=== PATIENT | male | born 1950 | race Caucasian/White ===

== ENCOUNTER 2018-04-14 17:52 | Emergency (ER) | payer BC ==
[~2018-04-14] VITALS: Ht 182.9 cm; Wt 125.0 kg
[~2018-04-14 17:52] MED LIST: ACTOPLUS MET 851 TAB PO; ASPIRIN 81M81 MG/TA2 PO; GLUCOPHAGE850 MG/TAB PO; LANTUS SOLOS100 U/ML SC; MULTIPLE VITAMI1 CAP PO; PERCOCET 325 MG1 TA2 PO; POTASSIUM; TYLENOL 325MG325 MG PO; ULTRAM 50MG TAB50 MG PO; XARELTO15 MG PO
[2018-04-14 17:59] VITALS: TEMP 98
[2018-04-14 18:41] LABS: BASO % 0.4 % (0.0-2.0); EOS # 0.1 (0.0-0.7); EOS % 0.8 % (0-4.0); GRAN # 3.9 (1.4-6.5); HEMATOCRIT 43.4 % (42.0-52.0); HEMOGLOBIN 15.4 g/dl (13.5-18.0); LYMPH # 2.8 (1.2-3.4); LYMPH % 37.2 % (20.0-51.0); MEAN CELL VOLUME 90 fl (80.0-100.0); MEAN CORPUSCULAR HEMOGLOBIN 32 pg (27.0-31.0); MEAN CORPUSCULAR HGB CONC 36 g/dl (33.0-37.0); MEAN PLATELET VOLUME 9.1 fl (7.4-10.4); MONO # 0.7 (0.1-0.6); MONO % 9.2 % (1.7-9.3); PLATELET COUNT 133 K/mm3 (130-400)
[2018-04-14 18:43] LABS: INR 0.9 (0.8-3.0); PROTHROMBIN TIME 10.4 SECONDS (9.7-12.8)
[2018-04-14 18:46] LABS: PARTIAL THROMBOPLASTIN TIME 41.4 SECONDS (26.0-37.0)
[2018-04-14 18:47] LABS: ALANINE AMINOTRANSFERASE 39 U/L (21-72); ALKALINE PHOSPHATASE 72 U/L (50-136); ANION GAP 13 mmol/L (7-16); AST,SGOT 30 U/L (15-37); BILIRUBIN,TOTAL 0.8 mg/dL (0.0-1.0); BLOOD UREA NITROGEN 17 mg/dL (9-20); CALCIUM 9.7 mg/dL (8.4-10.2); CARBON DIOXIDE 25 mmol/L (22-30); CHLORIDE 98 mmol/L (98-107); CREATININE, serum 0.84 mg/dL (0.66-1.25); GLUCOSE 272 mg/dL (74-106); POTASSIUM 4.2 mmol/L (3.4-5.0); SODIUM 136 mmol/L (137-145); TOTAL PROTEIN 7.9 gm/dL (6.4-8.2)
[2018-04-14 19:01] LABS: TROPONIN-I < 0.012 ng/mL (0.000-0.034)
[2018-04-14] MEDS ORDERED: ELIQUIS 5MG PO (19:31)
[2018-04-14 20:00] VITALS: BP 150/84; PULSE 80
== END 2018-04-14 20:00 | disposition home or self-care (01) ==
LOC: COL.ER 17:52
PROVIDERS: Emergency Medicine
DX: R06.02 Shortness of breath (principal); E11.9 Type 2 diabetes mellitus without complications; Z79.82 Long term (current) use of aspirin; Z79.84 Long term (current) use of oral hypoglycemic drugs; Z86.711 Personal history of pulmonary embolism; Z86.718 Personal history of other venous thrombosis and embolism
CPT/HCPCS: Q9967

== ENCOUNTER → 2019-06-07 | Outpatient (CLI) | payer BC ==
[~2019-06-07] MED LIST changes: +CLEOCIN HC150 MG/CAP PO; +ELIQUIS 5MG PO; +GLUCOPHAGE1000 MG PO; +GLUCOTROL10 MG PO; +JANUVIA 100MG100 MG PO; +LIPITOR20 MG PO; +SILVADENE CREAM1 TU TP; +TRULICITY1.5 MG/0.5 SQ; +TYLENOL PM EXTR1 TA1 PO; +VITAMIN C W/ROSE HIP PO
== END ==
LOC: COL.RAD 09:27
DX: S91.309A Unspecified open wound, unspecified foot, initial encounter (principal); L08.9 Local infection of the skin and subcutaneous tissue, unspecified; G62.9 Polyneuropathy, unspecified; I96 Gangrene, not elsewhere classified
CPT/HCPCS: A9585

== ENCOUNTER 2019-06-09 16:10 | Inpatient (IN) | payer BC, MEDICARE ==
[~2019-06-09] VITALS: Ht 182.9 cm; Wt 114.2 kg
[~2019-06-09 16:10] MED LIST changes: -CLEOCIN HC150 MG/CAP PO; -GLUCOPHAGE1000 MG PO; -GLUCOTROL10 MG PO; -JANUVIA 100MG100 MG PO; -LIPITOR20 MG PO; -SILVADENE CREAM1 TU TP; -TRULICITY1.5 MG/0.5 SQ; -TYLENOL PM EXTR1 TA1 PO; -VITAMIN C W/ROSE HIP PO
[2019-06-09] MEDS ORDERED: TRULICITY1.5 MG/0.5 SQ (17:14)
[2019-06-09] MEDS ORDERED: CLEOCIN HC150 MG/CAP PO (17:15)
[2019-06-09] MEDS ORDERED: GLUCOPHAGE1000 MG PO (17:15)
[2019-06-09] MEDS ORDERED: GLUCOTROL10 MG PO (17:16)
[2019-06-09] MEDS ORDERED: SILVADENE CREAM1 TU TP (17:16)
[2019-06-09] MEDS ORDERED: JANUVIA 100MG100 MG PO (17:17)
[2019-06-09] MEDS ORDERED: LIPITOR20 MG PO (17:17)
[2019-06-09] MEDS ORDERED: VITAMIN C W/ROSE HIP PO (17:18)
[2019-06-09] MEDS ORDERED: TYLENOL PM EXTR1 TA1 PO (17:19)
[2019-06-09 17:42] VITALS: BP 142/63; PULSE 100; TEMP 102
--- NOTE | 2019-06-09 18:00 | NUR ---
Patient has been oriented to room. His is at bedside. Wound culture done and sent to lab. Lab is here doing blood cultures and lab at this time. No other changes at this time. Call light within reach.
[2019-06-09 18:16] LABS: HEMOGLOBIN 11.8 g/dl (13.5-18.0); MEAN CELL VOLUME 92 fl (80.0-100.0); MEAN CORPUSCULAR HEMOGLOBIN 32 pg (27.0-31.0); MEAN CORPUSCULAR HGB CONC 34 g/dl (33.0-37.0); MEAN PLATELET VOLUME 8.8 fl (7.4-10.4); PLATELET COUNT 191 K/mm3 (130-400); RED BLOOD COUNT 3.74 M/mm3 (4.20-5.60); REDCELL DISTRIBUTION WIDTH-CV 12.1 % (11.5-14.5)
[2019-06-09 18:25] LABS: INR 1.3 (0.8-3.0); PROTHROMBIN TIME 14.8 SECONDS (9.7-12.8)
[2019-06-09 18:30] LABS: HEMATOCRIT 34.4 % (42.0-52.0)
[2019-06-09 18:32] LABS: ALBUMIN 3.9 gm/dL (3.5-5.0); CALCIUM 9.1 mg/dL (8.4-10.2); CREATININE, serum 0.75 (0.66-1.25); POTASSIUM 3.9 mmol/L (3.4-5.0)
[2019-06-09 18:44] LABS: C-REACTIVE PROTEIN 22.7 mg/dL (0.0-0.9)
--- NOTE | 2019-06-09 18:51 | NUR ---
Vancomycin Initial Dosing Pharmacy Note Ordering provider: Smooth Christianson MD Indication/duration: Osteomyelitis/10 days LABS: Crea: 0.75, est Crcl >90 Recommendation: Obtain trough on 06/11 @ 1030, will follow daily Creatinine level Loading dose: 1.5 grams Maintenance dose: 1.25 grams every 8 hours Trough goal: 15-20 ug/mL
[2019-06-09 19:27] VITALS: BP 146/64; PULSE 102; TEMP 101.2
[2019-06-09 19:28] LABS: BAND 2 % (0-10); LYMPHOCYTE 9 % (20.0-51.0); NEUTROPHILS 88 % (42.0-75.2); PLATELET ESTIMATE NORMAL (NORMAL)
--- NOTE | 2019-06-09 20:30 | NUR ---
PT RESTING IN BED A+OX4. REPORTS MINIMAL PAIN IN RIGHT ANCKLE. RIGHT LEG IS DICOLORATED BLUE/RED. 5TH TOE IS BLACK/RED, OPEN WITH DRAINAGE. 4YH TOE SLIGHTLY BLACK AND VERY RED. 3,2,1 TOE ARE RED. BOTTOM OF FOOT- BLISTER- PT REPORTS BURNING FEET AT THE POOL D/T THE LACK OF SENSATION IN BILAT FEET. LEFT LEG IS RED. ASSESSED BILAT PEDAL PULSES WITH DOPLER- PULSES FOUND AND STRONG.IV FLUSHES WELL, NO REDNESS, NO SWELLING. IV ANTIBIOTICS STARTED. LUNGS CLEAR X4. BOWEL SOUNDS HEAR THROUGOUT. NO NEEDS AT THIS TIME. CALL LIGHT IN REACH
[2019-06-09 21:59] VITALS: TEMP 98.6
[2019-06-09 23:16] VITALS: BP 128/65; PULSE 81; TEMP 98.8
--- NOTE | 2019-06-10 02:00 | NUR ---
SCDs ON. NO NEEDS AT THIS TIME. IV FLUSHES WELL, NO REDNESS, NO SWELLING
[2019-06-10 04:07] VITALS: BP 139/71; PULSE 82; TEMP 98.4
[2019-06-10 05:25] LABS: COLLECTION METHOD CLEAN CATCH
[2019-06-10 05:30] LABS: PH 5 (5-8); SQUAMOUS EPITHELIAL None Seen /hpf; URINE APPEARANCE Clear; URINE BACTERIA None Seen /hpf; URINE BILIRUBIN Negative (NEGATIVE); URINE BLOOD Negative (NEGATIVE); URINE COLOR Yellow; URINE GLUCOSE Negative (NEGATIVE); URINE KETONE Negative (NEGATIVE); URINE LEUKOCYTE ESTERASE Negative (NEGATIVE); URINE NITRATE Negative (NEGATIVE); URINE PROTEIN(semi-quant) Negative (NEGATIVE); URINE RBC 0-2 /hpf; URINE UROBILINOGEN Negative (NEGATIVE)
--- NOTE | 2019-06-10 06:03 | NUR ---
PT HAD AN UNEVENTFUL NIGHT. MINIMAL PAIN- PRN TYLENOL GIVEN FOR MILD PAIN AND FEVER 101.2- FEVER DECREASED WITH TYLENOL. SCD ON. FEET ELEVATED. GAIT STABLE. ADEQUATE URINE OUTPUT RIGHT LEG IS DICOLORATED BLUE/RED. 5TH TOE IS BLACK/RED, OPEN WITH DRAINAGE. 4TH TOE SLIGHTLY BLACK AND VERY RED. 3,2,1 TOE ARE RED. BOTTOM OF FOOT- BLISTER- PT REPORTS BURNING FEET AT THE POOL D/T THE LACK OF SENSATION IN BILAT FEET. LEFT LEG IS RED. ASSESSED BILAT PEDAL PULSES WITH DOPLER- PULSES FOUND AND STRONG.IV FLUSHES WELL, NO REDNESS, NO SWELLING. LUNGS CLEAR X4. BOWEL SOUNDS HEARD THROUGOUT. NO NEEDS AT THIS TIME. CALL LIGHT IN REACH.
[2019-06-10 06:56] LABS: HEMOGLOBIN 10.9 g/dl (13.5-18.0); MEAN CELL VOLUME 93 fl (80.0-100.0); MEAN CORPUSCULAR HEMOGLOBIN 31 pg (27.0-31.0); MEAN CORPUSCULAR HGB CONC 34 g/dl (33.0-37.0); MEAN PLATELET VOLUME 9.1 fl (7.4-10.4); PLATELET COUNT 173 K/mm3 (130-400); RED BLOOD COUNT 3.47 M/mm3 (4.20-5.60); REDCELL DISTRIBUTION WIDTH-CV 12.3 % (11.5-14.5)
[2019-06-10 07:00] LABS: HEMATOCRIT 32.2 % (42.0-52.0)
--- NOTE | 2019-06-10 07:09 | NUR ---
REPORT GIVEN TO CASSIA BARRETT
[2019-06-10 07:20] LABS: EOSINOPHIL 1 % (0-4); LYMPHOCYTE 14 % (20.0-51.0); NEUTROPHILS 74 % (42.0-75.2); PLATELET ESTIMATE NORMAL (NORMAL)
[2019-06-10 07:24] LABS: CALCIUM 8.4 mg/dL (8.4-10.2); CREATININE, serum 0.67 (0.66-1.25); POTASSIUM 3.5 mmol/L (3.4-5.0)
[2019-06-10 07:52] VITALS: BP 140/71; PULSE 82; TEMP 98.6
--- NOTE | 2019-06-10 08:59 | NUR ---
Assessment completed, alert/oriented, vital signs stable, denies pain or discomfort, right foot dressed per Ortho/ plans for surgery tommorow for partial amputation, heart RRR, distal pulsese palpable, pedal pulses weak, lungs CTA / no resp.difficulty, present, eating breakfast and denies other needs at this time
[2019-06-10 12:27] VITALS: BP 149/68; PULSE 83; TEMP 98.4
[2019-06-10 15:49] VITALS: BP 134/64; PULSE 87; TEMP 98.2
[2019-06-10 20:55] VITALS: BP 160/73; PULSE 82; TEMP 98.3
--- NOTE | 2019-06-10 21:30 | NUR ---
Pt. sitting up in bed at this time. Pt. is A&OX3, assessment complete. PICC to rt.upper arm with IV fluids infusing per orders. Rt. foot with occulsive dressing, CDI. Pt. denies pain or other needs at this time. Call light within reach.
[2019-06-10 23:08] VITALS: BP 151/73; PULSE 80; TEMP 99
[2019-06-11 03:37] VITALS: BP 164/71; PULSE 79; TEMP 98.7
[2019-06-11 06:41] LABS: HEMOGLOBIN 11.4 g/dl (13.5-18.0); MEAN CELL VOLUME 93 fl (80.0-100.0); MEAN CORPUSCULAR HEMOGLOBIN 32 pg (27.0-31.0); MEAN CORPUSCULAR HGB CONC 34 g/dl (33.0-37.0); MEAN PLATELET VOLUME 8.8 fl (7.4-10.4); PLATELET COUNT 164 K/mm3 (130-400)
[2019-06-11 06:48] LABS: HEMATOCRIT 33.4 % (42.0-52.0)
[2019-06-11 06:49] LABS: CALCIUM 8.7 mg/dL (8.4-10.2); CREATININE, serum 0.6 (0.66-1.25); POTASSIUM 3.8 mmol/L (3.4-5.0)
[2019-06-11 07:34] LABS: EOSINOPHIL 1 % (0-4); LYMPHOCYTE 10 % (20.0-51.0); NEUTROPHILS 79 % (42.0-75.2); PLATELET ESTIMATE NORMAL (NORMAL)
[2019-06-11 07:45] VITALS: BP 155/77; PULSE 78; TEMP 98.2
[2019-06-11 11:25] VITALS: BP 158/72; PULSE 75; TEMP 98.1
--- NOTE | 2019-06-11 15:47 | NUR ---
Vancomycin Follow-up Pharmacy Note Current regimen: Vancomycin 1.25 gm IV q8h Vancomycin trough: 12.2 Adjustments: Will increase Vancomycin to 1.5 gm IV q8h to increase Vancomycin trough to goal ~15-20 for osteomyelitis. Will order Vancomycin trough prior to 4th new dose on 06/12/19 @1530. Pharmacy will continue to monitor.
[2019-06-11 17:00] VITALS: BP 161/72; PULSE 86
[2019-06-11 19:09] VITALS: BP 151/68; PULSE 81; TEMP 98.3
--- NOTE | 2019-06-11 23:11 | NUR ---
PT IN BED. NO c/o PAIN. CONSENT FOR TOMORROW'S PROCEDURE OBTAINED.
[2019-06-11 23:39] VITALS: BP 155/72; PULSE 81; TEMP 98.3
[2019-06-12] VITALS (13 sets, daily range): BP systolic 119–170; BP diastolic 47–90; PULSE 71–99; TEMP 98–100.3
[2019-06-12 06:17] LABS: HEMOGLOBIN 11.8 g/dl (13.5-18.0); MEAN CELL VOLUME 93 fl (80.0-100.0); MEAN CORPUSCULAR HEMOGLOBIN 32 pg (27.0-31.0); MEAN CORPUSCULAR HGB CONC 34 g/dl (33.0-37.0); PLATELET COUNT 181 K/mm3 (130-400); RED BLOOD COUNT 3.73 M/mm3 (4.20-5.60)
[2019-06-12 06:21] LABS: HEMATOCRIT 34.5 % (42.0-52.0)
[2019-06-12 06:36] LABS: CALCIUM 8.9 mg/dL (8.4-10.2); CREATININE, serum 0.64 (0.66-1.25); POTASSIUM 3.7 mmol/L (3.4-5.0)
[2019-06-12 07:06] LABS: BAND 6 % (0-10); LYMPHOCYTE 27 % (20.0-51.0); NEUTROPHILS 64 % (42.0-75.2); PLATELET ESTIMATE NORMAL (NORMAL)
--- NOTE | 2019-06-12 14:00 | NUR ---
Plans to return home with Silvia in [facility]. Patient reports that is is his DPOA. Patient reports he uses [facility] in [place] for RX and pcp is Dr. Quezada who is replacing Dr. Conklin as [facility] PCP. Patient reports that he is not sure what they will need and is not opposed to SNF, or [facility]. Silvia in room and educated her on services available to them. Left them with a DPOA form to update, Medicare.gove list of SNF and Home health care. Will continue to follow care as they are ready for DC.
--- NOTE | 2019-06-12 17:45 | NUR ---
Patient sitting in bed upon assessment at beginning of shift. Will go for procedure to amputate 3rd, 4th and 5th toes. Denies having any pain due to neuropathy in his feet. Right lower leg is swollen and has brown dried scales all over right lower leg. There is also a large sore/ulcer on the bottom of his left foot that was stuck to his sock. Sock gently removed with a wet wash cloth. Non-adherent dressing and gauze put over sore so it wouldn't stick to his new socks. To procedure at 0930. Return from procedure around 1020. Continues to deny having any pain to right lower extremity. Patient is able to move right lower extremity without difficulty. Patient has no further concerns regarding the procedure at this time.
[2019-06-13 04:47] VITALS: BP 136/64; PULSE 84; TEMP 98
[2019-06-13 06:59] LABS: HEMOGLOBIN 11.3 g/dl (13.5-18.0); MEAN CELL VOLUME 93 fl (80.0-100.0); MEAN CORPUSCULAR HEMOGLOBIN 32 pg (27.0-31.0); MEAN CORPUSCULAR HGB CONC 35 g/dl (33.0-37.0); PLATELET COUNT 200 K/mm3 (130-400); RED BLOOD COUNT 3.52 M/mm3 (4.20-5.60); REDCELL DISTRIBUTION WIDTH-CV 12.1 % (11.5-14.5)
[2019-06-13 07:01] LABS: HEMATOCRIT 32.8 % (42.0-52.0)
[2019-06-13 07:14] LABS: CALCIUM 8.4 mg/dL (8.4-10.2); CREATININE, serum 0.68 (0.66-1.25); POTASSIUM 3.4 mmol/L (3.4-5.0)
[2019-06-13 07:22] VITALS: BP 126/62; PULSE 80; TEMP 98.4
[2019-06-13 07:54] LABS: EOSINOPHIL 2 % (0-4); LYMPHOCYTE 21 % (20.0-51.0); NEUTROPHILS 70 % (42.0-75.2); PLATELET ESTIMATE NORMAL (NORMAL)
[2019-06-13 11:35] VITALS: BP 131/80; PULSE 80; TEMP 98.4
--- NOTE | 2019-06-13 11:48 | NUR ---
Contacted Moises WOODARD, patient states that he needs a special boot prior to discharge. Per Ortho patient needs a hard sole shoe or post op shoe.
--- NOTE | 2019-06-13 14:34 | NUR ---
SW met with the patient to discuss physical therapy recommendations of home vs. SNF. The pt inquired about home health services; pt chose [facility]. SW faxed referral to Sravani at [place]. CONRAD will continue to follow.
[2019-06-13 15:35] VITALS: BP 129/51; PULSE 92; TEMP 97.9
--- NOTE | 2019-06-13 18:17 | NUR ---
Patient has done well throughout the day. Post op shoe to right foot. Adams wrap dressing in place. Has been up ambulating with physical therapy, steady gait with walker and 1 assist. Denies pain at this time. Denies further needs at this time. Will report off to mine shifter.
[2019-06-13 19:45] VITALS: BP 124/47; PULSE 89; TEMP 98.7
--- NOTE | 2019-06-13 20:15 | NUR ---
Pt. sitting up in bed at this time. Pt. is A&OX3, assessment complete. PICC to rt. upper arm patent. Dressing to rt. foot CDI. Pt. denies pain or other needs at this time.
[2019-06-14] VITALS: BP 134/61; PULSE 83; TEMP 98.4
[2019-06-14 03:33] VITALS: BP 141/55; PULSE 76; TEMP 98.5
[2019-06-14 07:02] LABS: BASO % 0.3 % (0.0-2.0); EOS # 0.2 (0.0-0.7); GRAN # 5.6 (1.4-6.5); GRAN % 61.8 % (42.2-75.2); HEMOGLOBIN 11.4 g/dl (13.5-18.0); LYMPH # 2.3 (1.2-3.4); LYMPH % 25.1 % (20.0-51.0); MEAN CELL VOLUME 93 fl (80.0-100.0); MEAN CORPUSCULAR HEMOGLOBIN 31 pg (27.0-31.0); MEAN CORPUSCULAR HGB CONC 34 g/dl (33.0-37.0); MEAN PLATELET VOLUME 8.8 fl (7.4-10.4); MONO # 0.9 (0.1-0.6); MONO % 9.9 % (1.7-9.3); PLATELET COUNT 186 K/mm3 (130-400); RED BLOOD COUNT 3.63 M/mm3 (4.20-5.60)
[2019-06-14 07:03] LABS: HEMATOCRIT 33.9 % (42.0-52.0)
[2019-06-14 07:17] LABS: CALCIUM 8.6 mg/dL (8.4-10.2); CREATININE, serum 0.65 (0.66-1.25); POTASSIUM 3.5 mmol/L (3.4-5.0)
--- NOTE | 2019-06-14 07:44 | NUR ---
Pt is awake and A/Ox4, resting in bed. He states he has an occasional sharp pain to his right great toe, but it goes away quickly and he denies needing any pain medication. PICC line to right upper arm is free of complications. Surgical dressing to R foot remains free of complications, CDI. Pt denies any other needs.
[2019-06-14 08:56] VITALS: BP 148/64; PULSE 77; TEMP 98.2
--- NOTE | 2019-06-14 09:03 | NUR ---
SW presented the IM form to the patient; pt understood and signed the from. A copy was provided to the pt; original was placed in the pt's chart. CONRAD will continue to follow.
[2019-06-14] MEDS ORDERED: AMOXICILLIN 8751 TAB PO (11:44)
[2019-06-14] MEDS ORDERED: TYLENOL 325MG325 MG PO (11:46)
[2019-06-14] MEDS ORDERED: ASPI325T6 PO (11:46)
[2019-06-14 12:47] VITALS: BP 129/85; PULSE 83; TEMP 99.3
--- NOTE | 2019-06-14 13:18 | NUR ---
The patient is to discharge home today, 06/14 with [facility] with nursing and physical therapy. The pt's nurse, hospitalist and pt were all in agreeance. SW faxed discharge orders to [facility]. There are no additional needs at this time.
[2019-06-14] MEDS ORDERED: GLUCOSE TEST ST1 DEV MC (14:16)
[2019-06-14] MEDS ORDERED: FREESTYLE PREC1 EAC5 MC (14:16)
[2019-06-14 15:35] VITALS: BP 139/62; PULSE 90; TEMP 99.6
--- NOTE | 2019-06-14 15:36 | NUR ---
Pt was discharged home with home health. All discharge instructions and paperwork was reviewed with pt who expressed understanding. New medications reviewed and sent to pharmacy. PICC line removed per DEVIN Moyer. Pt awaiting ride home.
--- NOTE | 2019-06-14 16:00 | NUR ---
Pt's ride is here and he was escorted out by staff.
== END 2019-06-14 16:00 | disposition home or self-care (01) | DRG 853 ==
LOC: MEDICAL 16:10 → SURG 16:14
PROVIDERS: Nurse Practitioner Family; Orthopaedic Surgery Sports Medicine; Physician Assistant; ADMIT Hospitalist
PROC: 05PYX3Z Removal of Infusion Device from Upper Vein, External Approach (ICD-10-PCS; 2019-06-09)
PROC: 02HV33Z Insertion of Infusion Device into Superior Vena Cava, Percutaneous Approach (ICD-10-PCS; 2019-06-10)
PROC: 0Y6M0ZD Detachment at Right Foot, Partial 4th Ray, Open Approach (ICD-10-PCS; 2019-06-12)
PROC: 0Y6M0ZF Detachment at Right Foot, Partial 5th Ray, Open Approach (ICD-10-PCS; 2019-06-12)
PROC: 0Y6T0Z0 Detachment at Right 3rd Toe, Complete, Open Approach (ICD-10-PCS; principal; 2019-06-12 10:00)
DX: A41.9 Sepsis, unspecified organism (principal); E43 Unspecified severe protein-calorie malnutrition; M86.9 Osteomyelitis, unspecified; E11.52 Type 2 diabetes mellitus with diabetic peripheral angiopathy with gangrene; E11.69 Type 2 diabetes mellitus with other specified complication; E11.42 Type 2 diabetes mellitus with diabetic polyneuropathy; E78.5 Hyperlipidemia, unspecified; G43.909 Migraine, unspecified, not intractable, without status migrainosus; B96.20 Unspecified Escherichia coli [E. coli] as the cause of diseases classified elsewhere; Z86.718 Personal history of other venous thrombosis and embolism; Z86.711 Personal history of pulmonary embolism; Z68.34 Body mass index [BMI] 34.0-34.9, adult
CPT/HCPCS: 99222-AI; 99231-AI; 99233-AI; C1751; J0690; J1815; J2250; J2543; J2704; J3010; J3370; J7030; J7050

== ENCOUNTER → 2019-06-21 | Outpatient (CLI) | payer BC, MEDICARE ==
[~2019-06-21] MED LIST changes: +AMOXICILLIN 8751 TAB PO; +ASPI325T6 PO; +CLEOCIN HC150 MG/CAP PO; +FREESTYLE PREC1 EAC5 MC; +GLUCOPHAGE1000 MG PO; +GLUCOSE TEST ST1 DEV MC; +GLUCOTROL10 MG PO; +JANUVIA 100MG100 MG PO; +LIPITOR20 MG PO; +SILVADENE CREAM1 TU TP; +TRULICITY1.5 MG/0.5 SQ; +TYLENOL PM EXTR1 TA1 PO; +VITAMIN C W/ROSE HIP PO
[2019-06-21 08:19] LABS: HEMATOCRIT 40.5 % (42.0-52.0); HEMOGLOBIN 13.2 g/dl (13.5-18.0); MEAN CELL VOLUME 94 fl (80.0-100.0); MEAN CORPUSCULAR HEMOGLOBIN 31 pg (27.0-31.0); MEAN CORPUSCULAR HGB CONC 33 g/dl (33.0-37.0); MEAN PLATELET VOLUME 8.8 fl (7.4-10.4); PLATELET COUNT 279 K/mm3 (130-400); REDCELL DISTRIBUTION WIDTH-CV 12.1 % (11.5-14.5)
[2019-06-21 08:25] LABS: ALBUMIN 3.9 gm/dL (3.5-5.0); BILIRUBIN,TOTAL 0.3 mg/dL (0.0-1.0); CALCIUM 9.1 mg/dL (8.4-10.2); CREATININE, serum 0.82 (0.66-1.25); POTASSIUM 4.9 mmol/L (3.4-5.0); TOTAL PROTEIN 8.3 gm/dL (6.4-8.2)
== END ==
LOC: COL.LAB 07:45
PROVIDERS: Internal Medicine
DX: M86.9 Osteomyelitis, unspecified (principal)

== ENCOUNTER 2019-12-16 08:19 | Inpatient (IN) | payer BC, MEDICARE ==
[~2019-12-16] VITALS: Ht 182.9 cm; Wt 127.2 kg
[~2019-12-16 08:19] MED LIST changes: +LIPITOR 40MG TA40 MG PO; -LIPITOR20 MG PO
[2019-12-16] MEDS ORDERED: BACTRIM DS 8001 TAB PO (08:31)
[2019-12-16 08:53] LABS: BASO % 0.2 % (0.0-2.0); GRAN # 13.7 (1.4-6.5); GRAN % 80.6 % (42.2-75.2); HEMATOCRIT 39.5 % (42.0-52.0); HEMOGLOBIN 13.4 g/dl (13.5-18.0); LYMPH # 1.4 (1.2-3.4); LYMPH % 8.5 % (20.0-51.0); MEAN CELL VOLUME 92 fl (80.0-100.0); MEAN CORPUSCULAR HEMOGLOBIN 31 pg (27.0-31.0); MEAN CORPUSCULAR HGB CONC 34 g/dl (33.0-37.0); MEAN PLATELET VOLUME 8.9 fl (7.4-10.4); MONO # 1.7 (0.1-0.6); PLATELET COUNT 171 K/mm3 (130-400); RED BLOOD COUNT 4.28 M/mm3 (4.20-5.60); REDCELL DISTRIBUTION WIDTH-CV 12.2 % (11.5-14.5)
[2019-12-16 09:01] LABS: INR 1.3 (0.8-3.0); PROTHROMBIN TIME 15.3 SECONDS (9.7-12.8)
[2019-12-16 09:06] LABS: ALANINE AMINOTRANSFERASE 12 U/L (21-72); ALBUMIN 4.4 gm/dL (3.5-5.0); ALKALINE PHOSPHATASE 84 U/L (50-136); ANION GAP 14 mmol/L (7-16); AST,SGOT 25 U/L (15-37); BILIRUBIN,TOTAL 1.9 mg/dL (0.0-1.0); BLOOD UREA NITROGEN 16 mg/dL (9-20); CALCIUM 9.4 mg/dL (8.4-10.2); CARBON DIOXIDE 24 mmol/L (22-30); CHLORIDE 95 mmol/L (98-107); CREATININE, serum 0.94 (0.66-1.25); GLUCOSE 331 mg/dL (74-106); LIPASE 25 U/L (23-300); POTASSIUM 4.3 mmol/L (3.4-5.0); SODIUM 133 mmol/L (137-145); TOTAL PROTEIN 8.4 gm/dL (6.4-8.2)
[2019-12-16 09:17] LABS: TROPONIN-I < 0.012 ng/mL (0.000-0.035)
--- NOTE | 2019-12-16 10:50 | NUR ---
PATIENT ADMITED INTO ROOM 324 FROM ER WITH CELLULITIS OF THE LEFT FOOT. PATIENT IS SEPTIC WITH FEVER OF 102.0 AND TACHYCARDIA 100-114. TELE INPLACE. OTHER VSS. PATIENT C/O PAIN IN LLE RATED AT 5-6 ON PAIN SCALE. PATIENT REPORTS THIS IS TOLERABLE AND DENIES NEED FOR PAIN MEDS AT THIS TIME. PATIENT ADMITED WITH IV VANCO INFUSING. SECOND IV STARTED, 18 GAUGE IN THE LEFT FORARM WITH NS BOLUS OF 1L INFUSING. LLE IS RED, SWOLLEN, ODOR PRESENT, AND WITH A CONRAD SIZE OPEN ULCER WITH BLACK TISSUE VISUALIZED. PATIENT REPORTS HE HAS BEEN GOING TO WOUND CARE BUT IT IS NOT GETTING BETTER. WOUND CULTURE SENT. WAITING FOR PAIN TO VOID TO SEND UA. HEAD TO TOE ASSESSMENT COMPLETE. HOSPITALIST AT BEDSIDE. SEE ORDERS.
[2019-12-16] MEDS ORDERED: ASPIRIN 32325 MG/TAB PO (10:56)
[2019-12-16 11:19] VITALS: BP 114/51; PULSE 94; TEMP 98.4
--- NOTE | 2019-12-16 13:43 | NUR ---
Prison Classification Counselor met with patient to discuss discharge planning. Patient lives in [place] with his Silvia (ph#[phone]) [address] Zhang for primary care. Patient obtains medications from [facility] in [place] with no difficulties. Patient has a cane and walker at home but reports he only uses them as needed. Patient reports independence with ADLS. Patient has utilized [facility] in the past but no longer has their services. Patient has Advance Directives located in the EMR. Patient states he plans to return home upon discharge. SW to continue to follow to ensure safe discharge.
--- NOTE | 2019-12-16 13:58 | NUR ---
Vancomycin Initial Dosing Pharmacy Note Ordering provider: Harish Nichols MD Indication/duration: SEPSIS Relevant comorbidities: diabetes LABS: WBC 17, SCr 0.9, CrCl 90 Recommendation: vancomycin ~15mg/kg Maintenance dose: 1.75 grams every 12 hours Trough goal: 15-20 ug/mL. Trough 12/18 @0930
--- NOTE | 2019-12-16 14:10 | NUR ---
ORTHO AT BEDSIDE. SEE ORDERS.
[2019-12-16 14:37] LABS: COLLECTION METHOD CLEAN CATCH
[2019-12-16 15:40] LABS: MUCOUS Present /lpf; PH 5 (5-8); SQUAMOUS EPITHELIAL 0-2 /hpf; URINE APPEARANCE Clear; URINE BACTERIA None Seen /hpf; URINE BILIRUBIN Negative (NEGATIVE); URINE BLOOD Negative (NEGATIVE); URINE COLOR Yellow; URINE GLUCOSE 3+ (NEGATIVE); URINE KETONE 1+ (NEGATIVE); URINE LEUKOCYTE ESTERASE Negative (NEGATIVE); URINE NITRATE Negative (NEGATIVE); URINE PROTEIN(semi-quant) 1+ (NEGATIVE); URINE RBC 0-2 /hpf; URINE UROBILINOGEN Negative (NEGATIVE)
[2019-12-16 16:17] VITALS: BP 156/88; PULSE 104; TEMP 98.5
[2019-12-16 18:00] VITALS: BP 138/67; PULSE 106; TEMP 102
[2019-12-16 19:24] VITALS: BP 105/49; PULSE 97; TEMP 99.9
--- NOTE | 2019-12-16 21:08 | NUR ---
Pt doing ok. Alert and oriented with VSS. Heart and lung sounds normal. On tele. Here with cellulitis of left foot. schedued to tayler HUIZAR tomorrow due to infection to bone. On abx, vanc and zosyn. IV to R & L forearm, both CD&I. Pt denies pain or needs at this time. Call light within reach, will continue to monitor
--- NOTE | 2019-12-16 22:41 | NUR ---
Pt doing well. Does not c/o pain and denies needs. Call light within reach, will continue to monitor
[2019-12-16 23:12] VITALS: BP 136/58; PULSE 95; TEMP 100.4
[2019-12-17] VITALS (11 sets, daily range): BP systolic 96–132; BP diastolic 53–76; PULSE 77–114; TEMP 98.1–99.2
--- NOTE | 2019-12-17 03:30 | NUR ---
Pt walked to bathroom and left trail of blood from nickel sized ulcer on L foot. Irrigated with NS and packed with gauze and wrapped with coban.
--- NOTE | 2019-12-17 07:30 | NUR ---
Patient sitting up on edge of bed. Alert and oriented x 3. States he called his letting her know he is going down for surger this AM. Assessment complete. Edema to BLE, +1 pitting. Ulcer to right foot with gauze dressing is CDI. LLE appears reddened, toes 3-5 on foot previously amputated. Denies pain at this time. Bed bath provided, independent oral care. Denies further needs at this time.
--- NOTE | 2019-12-17 07:40 | NUR ---
Patient down to OR by bed.
[2019-12-17 07:47] LABS: BASO % 0.2 % (0.0-2.0); EOS % 0.1 % (0-4.0); GRAN # 12.9 (1.4-6.5); GRAN % 82.8 % (42.2-75.2); HEMOGLOBIN 12.4 g/dl (13.5-18.0); LYMPH # 1.2 (1.2-3.4); LYMPH % 7.6 % (20.0-51.0); MEAN CELL VOLUME 93 fl (80.0-100.0); MEAN CORPUSCULAR HEMOGLOBIN 31 pg (27.0-31.0); MEAN CORPUSCULAR HGB CONC 34 g/dl (33.0-37.0); MEAN PLATELET VOLUME 9.2 fl (7.4-10.4); MONO # 1.3 (0.1-0.6); MONO % 8.4 % (1.7-9.3); PLATELET COUNT 162 K/mm3 (130-400); RED BLOOD COUNT 3.96 M/mm3 (4.20-5.60); REDCELL DISTRIBUTION WIDTH-CV 12.2 % (11.5-14.5)
[2019-12-17 07:53] LABS: HEMATOCRIT 36.8 % (42.0-52.0)
[2019-12-17 08:27] LABS: ALBUMIN 3.7 gm/dL (3.5-5.0); BILIRUBIN,TOTAL 1.6 mg/dL (0.0-1.0); CALCIUM 8.5 mg/dL (8.4-10.2); CREATININE, serum 0.7 (0.66-1.25); POTASSIUM 4.3 mmol/L (3.4-5.0); TOTAL PROTEIN 7.3 gm/dL (6.4-8.2)
[2019-12-17 08:50] LABS: ERYTHROCYTE SEDIMENTATION RATE 129 mm/hr (0-30)
--- NOTE | 2019-12-17 11:10 | NUR ---
Patient up from OR. Alert and oriented x 3. Post op VSS. LLE with roger wrap and immobilizer in place. Patient states extremity feels numb to touch. Denies pain at this time.
--- NOTE | 2019-12-17 12:20 | NUR ---
Tree Cutter stopped by and offered prayer and support with patient while spouse was room.
[2019-12-17 12:29] LABS: C-REACTIVE PROTEIN 33.4 mg/dL (0.0-0.9)
--- NOTE | 2019-12-17 20:30 | NUR ---
Pt doing well post-op. Alert and oriented with VSS. 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 Pt did started c.o pain, PRN norco given per orders. Pt did get on side of bed and stood up for a few minutes, tolerated well. NS running to IV in L forearm. Denies needs at this time, call light within reach, will continue to monitor
--- NOTE | 2019-12-17 22:35 | NUR ---
Pt stated norco did not help with pain, gave oxycodone per prn orders
[2019-12-18 00:06] VITALS: BP 141/68; PULSE 82; TEMP 98
[2019-12-18 03:38] VITALS: BP 170/90; PULSE 91; TEMP 97.6
--- NOTE | 2019-12-18 04:51 | NUR ---
Pt stood up at side of bed again, tolerated well. BP was elevated but patient was standing and did c/o pain. PRN pain medicine given per orders. Pt denies needs at this time. Call light within reach, will continue to monitor
[2019-12-18 06:11] LABS: BASO % 0.2 % (0.0-2.0); EOS % 0.4 % (0-4.0); GRAN # 8.7 (1.4-6.5); GRAN % 78.2 % (42.2-75.2); HEMOGLOBIN 11.1 g/dl (13.5-18.0); LYMPH # 1.4 (1.2-3.4); LYMPH % 12.2 % (20.0-51.0); MEAN CELL VOLUME 94 fl (80.0-100.0); MEAN CORPUSCULAR HEMOGLOBIN 32 pg (27.0-31.0); MEAN CORPUSCULAR HGB CONC 34 g/dl (33.0-37.0); MEAN PLATELET VOLUME 9.1 fl (7.4-10.4); MONO # 0.9 (0.1-0.6); MONO % 8.3 % (1.7-9.3); PLATELET COUNT 148 K/mm3 (130-400); RED BLOOD COUNT 3.52 M/mm3 (4.20-5.60); REDCELL DISTRIBUTION WIDTH-CV 12.3 % (11.5-14.5)
[2019-12-18 06:17] LABS: CALCIUM 8.1 mg/dL (8.4-10.2); CREATININE, serum 0.55 (0.66-1.25); MAGNESIUM 1.6 mg/dL (1.6-2.3); POTASSIUM 4.2 mmol/L (3.4-5.0)
[2019-12-18 08:00] VITALS: BP 149/84; PULSE 69; PULSE 84; TEMP 98.2
--- NOTE | 2019-12-18 10:00 | NUR ---
Patient 2 assisted up to the bathroom. Gaitbelt & walker. He hopped on right foot bearing weight on walker & did quite well. He was independent with hygeine. Student nurse assisting with care provided fresh linens.
--- NOTE | 2019-12-18 10:29 | NUR ---
Vancomycin Follow-up Pharmacy Note Current regimen: vancomycin 1.75 g q12h Vancomycin trough: 7.1 Adjustments: increase to vancomycin 2 g q12h
[2019-12-18 12:00] VITALS: BP 143/66; PULSE 96; TEMP 97.7
--- NOTE | 2019-12-18 12:40 | NUR ---
Hospitalist rounded. Orders obtained. Muscle relaxant given for pain relief from spasm pain. Insulin adjustment per orders. Therapy rounded.
[2019-12-18 17:24] VITALS: BP 130/81; PULSE 88; TEMP 98.5
--- NOTE | 2019-12-18 17:58 | NUR ---
Patient continues to take pain medication as needed for pain management. LLe immobilizer on, dressing Cdi. Spoke to for consult & he reccommends stopping all antibioitcs.
--- NOTE | 2019-12-18 18:30 | NUR ---
Patient reports pain well managed on current regimen. New baclofen orders for frequent and inconsistent LLE cramping.
[2019-12-18 19:07] VITALS: BP 131/73; PULSE 93; TEMP 98.4
--- NOTE | 2019-12-18 20:19 | NUR ---
Pt doing well. Alert and oriented with VSS. Heart and lung sounds normal. Has LBKA on 12/17. Doing very well. Has gotten up to bedside commode with walker, tolerating well. Pt INT to L forearm, per orders from ID, does not need IV abx. Pt denies needs at this time. Call light within reach, will continue to monitor
[2019-12-19 00:14] VITALS: BP 151/66; PULSE 85; TEMP 97.9
[2019-12-19 04:52] VITALS: BP 165/73; PULSE 71; TEMP 97.9
[2019-12-19 06:31] LABS: HEMOGLOBIN 11.7 g/dl (13.5-18.0); MEAN CELL VOLUME 92 fl (80.0-100.0); MEAN CORPUSCULAR HEMOGLOBIN 32 pg (27.0-31.0); MEAN CORPUSCULAR HGB CONC 34 g/dl (33.0-37.0); MEAN PLATELET VOLUME 9.1 fl (7.4-10.4); PLATELET COUNT 178 K/mm3 (130-400); RED BLOOD COUNT 3.72 M/mm3 (4.20-5.60); REDCELL DISTRIBUTION WIDTH-CV 12.2 % (11.5-14.5)
[2019-12-19 06:33] LABS: HEMATOCRIT 34.3 % (42.0-52.0)
[2019-12-19 07:04] LABS: BAND 5 % (0-10); EOSINOPHIL 1 % (0-4); LYMPHOCYTE 22 % (20.0-51.0); NEUTROPHILS 63 % (42.0-75.2); PLATELET ESTIMATE NORMAL (NORMAL)
[2019-12-19 07:50] VITALS: BP 169/70; PULSE 99; TEMP 98.4
[2019-12-19 11:40] VITALS: BP 139/71; PULSE 91; TEMP 99.1
--- NOTE | 2019-12-19 14:18 | NUR ---
Matcher Operator spoke with AMARI Epperson who advised patient is interested in Inpatient Rehab and would likely be a good candidate. SW met with patient who states he would like to go to [place] [facility] as he feels this would be better than going directly home. SW contacted SYDNEE Gentile Director who will screen referral. SW to continue to follow.
[2019-12-19 16:19] VITALS: BP 129/66; PULSE 84; TEMP 97.9
--- NOTE | 2019-12-19 19:23 | NUR ---
Patient has done well throughout the day, requested pain medications once today, given per orders. LLE in brace throughout the day. Denies pain at this time. Denies further needs at this time. Reported off to maintenance supervisor 2nd shift.
[2019-12-19 20:48] VITALS: BP 127/60; PULSE 86; TEMP 98.8
--- NOTE | 2019-12-19 23:27 | NUR ---
Patient doing well tonight. alert and oriented. c/o mild phantom pain to L BKA, denies need for pain meds. JOSE and imobilizer to L BKA. IV L FA patent and flushes. 2100 accucheck 278, 8 units novolog given. no further needs at this time. will continue to monitor.
[2019-12-20 01:01] VITALS: BP 140/75; PULSE 81; TEMP 98.4
[2019-12-20 04:02] VITALS: BP 141/67; PULSE 86; TEMP 98.1
--- NOTE | 2019-12-20 05:49 | NUR ---
PATIENT DOING WELL. HAD TROUBLE SLEEPING. JOSE AND IMMOBILIZER IN PLACE TO L BKA. DENIED NEED FOR PAIN MEDS. NO FURTHER NEEDS AT THIS TIME. REPORT OFF TO DAY SHIFT.
[2019-12-20 07:19] LABS: HEMOGLOBIN 11.7 g/dl (13.5-18.0); MEAN CELL VOLUME 91 fl (80.0-100.0); MEAN CORPUSCULAR HEMOGLOBIN 31 pg (27.0-31.0); MEAN CORPUSCULAR HGB CONC 34 g/dl (33.0-37.0); MEAN PLATELET VOLUME 8.9 fl (7.4-10.4); PLATELET COUNT 187 K/mm3 (130-400); RED BLOOD COUNT 3.74 M/mm3 (4.20-5.60); REDCELL DISTRIBUTION WIDTH-CV 12.1 % (11.5-14.5)
[2019-12-20 07:31] LABS: ALBUMIN 3.4 gm/dL (3.5-5.0); BILIRUBIN,TOTAL 0.7 mg/dL (0.0-1.0); CALCIUM 8.9 mg/dL (8.4-10.2); CREATININE, serum 0.56 (0.66-1.25); POTASSIUM 3.7 mmol/L (3.4-5.0)
[2019-12-20 07:36] LABS: HEMATOCRIT 34.2 % (42.0-52.0)
[2019-12-20 07:38] VITALS: BP 146/67; PULSE 90; TEMP 98.2
[2019-12-20 08:15] LABS: BAND 1 % (0-10); EOSINOPHIL 1 % (0-4); LYMPHOCYTE 26 % (20.0-51.0); NEUTROPHILS 61 % (42.0-75.2); PLATELET ESTIMATE NORMAL (NORMAL)
[2019-12-20] MEDS ORDERED: LOVENOX 4040 MG/0.4 SQ (08:51)
[2019-12-20] MEDS ORDERED: NORCO 325 MG-7.1 TAB PO (08:52)
[2019-12-20] MEDS ORDERED: DULCOLAX S10 MG/SUPP RC (08:52)
[2019-12-20] MEDS ORDERED: SENNA-S 50 MG-81 TAB PO (08:52)
[2019-12-20] MEDS ORDERED: GOOD NEIGH1200 MG/15 PO (08:52)
--- NOTE | 2019-12-20 09:30 | NUR ---
Bedside report from CASSIA Glasgow. Pt in bed with call lt in reach, SCD and CIARA to RLE, immobilizer to LLE. A&O, pleasantly cooperative, glasses and HAs in place. Pt transferring to IPR today with this nurse, will continue to follow.
--- NOTE | 2019-12-20 10:15 | NUR ---
CONRAD spoke with Krupa, IPR Director who advised they can accept referral. Patient to discharge to [facility] today.
[2019-12-20] MEDS ORDERED: COZAAR 25MG25 MG/TAB PO (13:09)
[2019-12-20] MEDS ORDERED: ASPIRIN 32325 MG/TAB PO (13:11)
[2019-12-21 07:53] LABS: PATHOLOGY DIFF REVIEW OK +
== END 2019-12-20 09:42 | DRG 855 ==
LOC: COL.ER 08:19 → SURG 09:27
PROVIDERS: Emergency Medicine; Orthopaedic Surgery; Physician Assistant; ADMIT Internal Medicine
PROC: 0Y6J0Z2 Detachment at Left Lower Leg, Mid, Open Approach (ICD-10-PCS; principal; 2019-12-17 08:00)
DX: A41.9 Sepsis, unspecified organism (principal); R65.20 Severe sepsis without septic shock; E11.621 Type 2 diabetes mellitus with foot ulcer; E11.65 Type 2 diabetes mellitus with hyperglycemia; E78.5 Hyperlipidemia, unspecified; E11.42 Type 2 diabetes mellitus with diabetic polyneuropathy; Z86.718 Personal history of other venous thrombosis and embolism; E11.51 Type 2 diabetes mellitus with diabetic peripheral angiopathy without gangrene; Z86.711 Personal history of pulmonary embolism; Z79.01 Long term (current) use of anticoagulants
CPT/HCPCS: 99222-AI; 99232-AI; 99233-AI; 99239; J1650; J1815; J2250; J2405; J2543; J2704; J2795; J3010; J3370; J7030; J7040; J7050; L1830

== ENCOUNTER 2019-12-20 09:43 | Inpatient (IN) | payer BC, MEDICARE ==
[~2019-12-20] VITALS: Ht 182.9 cm; Wt 112.7 kg
[~2019-12-20 09:43] MED LIST changes: +ASPIRIN 32325 MG/TAB PO; +BACTRIM DS 8001 TAB PO; +DULCOLAX S10 MG/SUPP RC; +GOOD NEIGH1200 MG/15 PO; +LOVENOX 4040 MG/0.4 SQ; +NORCO 325 MG-7.1 TAB PO; +SENNA-S 50 MG-81 TAB PO
[2019-12-20 10:20] VITALS: BP 153/77; PULSE 86; TEMP 98.3
[2019-12-20] MEDS ORDERED: COZAAR 25MG25 MG/TAB PO (13:09)
[2019-12-20] MEDS ORDERED: ASPIRIN 32325 MG/TAB PO (13:11)
--- NOTE | 2019-12-20 14:33 | NUR ---
Civil Engineer Helper met with patient to complete initial intake as he is new to [facility]. Patient lives in [place] with his , Silvia (ph#[phone]). Patient sees Dr. Zhang for primary care and obtains medications from [facility] in [place] with no difficulties. Patient has a cane and walker at home. Patient reports he has a friend that is supposed to come up from [place] this weekend to install a ramp in his home and also bring him up a wheelchair. Patient does not have Advance Directives and does not want to set up DPOA-HC at this time. SW advised patient if he would like to complete DPOA-HC paperwork that SW can assist. SW will continue to follow to monitor for discharge needs.
--- NOTE | 2019-12-20 14:39 | NUR ---
Pt arrived to IPR unit this morning, this nurse was assigned to pt on surgical unit. He is A&O, pleasantly cooperative, denies nausea, takes pills whole with thin liquids. Immobilizer to Mikhail DUNHAM, pt does have phantom pain. Tylenol for headache 02/02, reviewed home meds and informed Dr. Nichols of necessary changes.
[2019-12-20 15:52] VITALS: BP 122/54; PULSE 79; TEMP 98.6
--- NOTE | 2019-12-20 19:14 | NUR ---
Bedside report to CASSIA Keenan. Pt in bed with alarm on, call lt and urinal in reach, CIARA hose removed and SCD donned to RLE, immobilizer in place to Mikhail DUNHAM
--- NOTE | 2019-12-20 21:00 | NUR ---
Patient rests in bed. Reports pain to just above LBKA incision and norco along with HS meds reviewed and given. Immobilzer checked and patient states immoblizer feels fine/not too tight. LLE elevated on pillow/dressing CDI. Snack of pudding given.
[2019-12-21 03:20] VITALS: BP 112/56; PULSE 78; TEMP 97.8
--- NOTE | 2019-12-21 03:30 | NUR ---
Patient awake and reports he's been sleeping good tonight. Denies need for pain med "pain really not that bad".
[2019-12-21 07:35] VITALS: BP 130/61; PULSE 85
--- NOTE | 2019-12-21 09:44 | NUR ---
Patient reported sleeping fairly well last night. Denied pain this morning, but was given prn Tylenol prior to his therapies. Left BKA incision is CDI and immobilizer is in place. Tolerating diet well.
--- NOTE | 2019-12-21 14:53 | NUR ---
Called engineering today to change temperture in room per patient request. He sweats alot and requested that it be cooler. Engineering will be making this modification to his room temperature. Patient has no skin issues with his bottom. He is a one assist with his walker to the bathroom this shift. He is independent with eating and grooming.
--- NOTE | 2019-12-21 16:15 | NUR ---
Bar Catcher met with patient to review and provide copy of team conference notes. SW advised patient discharge is tentatively scheduled for next Thursday12/30/2019. SW reviewed recommendation for Home Health and provided Medicare.gov list of agencies. Patient reports he has had [facility] in the past and would like to choose them again. Patient expressed that his friend is planning on being up this weekend to deliver him a wheelchair and build a ramp into his home. SW will continue to monitor as wheelchair is recommended upon discharge. SW discussed recommendation for tub transfer bench vs shower seat. Patient states he would like a tub transfer bench. SW also spoke with patient about scheduling a family meeting and patient reports SW will need to check with his about her schedule. CONRAD contacted patient's who reports Thursday at 1300 works for her. CONRAD notified Krupa, IPR Director. Patient's inquired about assistance with purchasing lift chair, power chair, and potentially a hospital bed. SW will follow up on these items. Patient's states they are able to afford a tub transfer bench and she will start shopping online for one. CONRAD contacted Sravani at [facility] and faxed a referral. SW to continue to follow.
[2019-12-21 17:17] VITALS: BP 111/65; PULSE 79; TEMP 97.9
--- NOTE | 2019-12-21 19:33 | NUR ---
Patient was agitated with the kitchen, reporting that he did not get all his order this evening. He got tired of waiting for the rest of his food, so he just ate what he had. He had called down to the kitchen at least two seperate times to check on this. Patient now resting in bed, call light in reach, bed alarm on and denies any questions.
--- NOTE | 2019-12-21 21:00 | NUR ---
SHIFT REPORT REC'D FROM Trey BEARDEN RN EARLIER. PT RESTING IN BED. AT BEDSIDE. PT NOT HAPPY WITH ROOM TEMPERATURE- TOO HOT NOW TOO COLD. BLANKETS PROVIDED. NOT HAPPY WITH FOOD OR COMFORT OF BED. "I CANT WAIT TO GO HOME." PT REPORTED HAD A DIFFICULT DAY WITH DIETARY ORDER. BROUGHT IN [employer]. SEE MAR FOR PAIN MED GIVEN FOR BACK AND PHANTOM LT STUMP PAIN.
--- NOTE | 2019-12-21 21:00 | NUR ---
REPORT REC'D BY LETICIA PRINGLE. PT RESTING IN BED. ROOM COLD NOW. PROVIDED EXTRA BLANKETS. PT NOT HAPPY WITH BED, FOOD, OR ROOM TEMPERATURE. "I CAN'T WAIT TO GET HOME". PT REQUESTED PAIN MED FOR PHANTOM PAIN TO LT STUMP & MIRALAX. SEE MAR. SEE SHIFT ASSESSMENT. CALL LIGHT IN REACH. BED ALARM SET.
--- NOTE | 2019-12-21 23:18 | NUR ---
PT IMPULSIVELY GOT OUT OF BED TO STAND TO USE URINAL. BED ALARM SOUNDED. PT WAS CAUGHT UP IN SCD'S HOSE. PT KNEW HE WAS IN [place] BUT COULDN'T SAY WHERE. HE ANSWERED "I'M IN THIS BED." REORIENTED. REVIEWED CALL LIGHT. PT APPRECIATIVE. ASSISTED WITH URINAL. BRIEFS DRY. BACK TO BED. CALL LIGHTI N REACH. BED ALARM SET AT MORE SENTIVE SETTING.
--- NOTE | 2019-12-22 05:29 | NUR ---
PT HAS SLEPT WELL THIS SHIFT. UNEVENTFUL NIGHT.
[2019-12-22 06:22] VITALS: BP 132/63; PULSE 79; TEMP 07.9
--- NOTE | 2019-12-22 10:32 | NUR ---
Bedside report from CASSIA Doan. Pt was in bed with immobilizer to LLE. Pt states chronic numbness to hands, denies dizziness. Pt flushed his stool, but reported a lg formed BM. Indep with eating, min assist for standing abruptly, some concern for balance. Pt cont's to have hyperkeratosis to RLE, own lotion in reach. Pt continent of B/B, A&O, pleasantly cooperative, after toileting, returned to wc with L leg rest to elevate stump in brace.
--- NOTE | 2019-12-22 12:18 | NUR ---
Pt ate lunch indep in bed.
--- NOTE | 2019-12-22 12:31 | NUR ---
Initial visit; Patient thanked Table Maker for visiting and offering God's blessings.
[2019-12-22 15:34] VITALS: BP 127/57; PULSE 84; TEMP 98.2
--- NOTE | 2019-12-22 18:27 | NUR ---
Pt had good day, applied lotion to exposed skin on LLE above dressing, dressing intact without shadowing. Applied lotion to RLE to areas of hyperkeratosis, pt donned CIARA and yellow gripper and SCD to RLE. Pt toileted, continent of stool, returned to bed with alarm on, urinal in reach, SCD back on, call lt in reach. Denied any needs.
--- NOTE | 2019-12-22 21:00 | NUR ---
BEDSIDE SHIFT REPORT REC'D BY VAL BELLO EARLIER. PT RESTING IN BED. COMFORTABLE AT THIS TIME. DENIES NEEDS.
--- NOTE | 2019-12-22 21:57 | NUR ---
PT SPILLED URINAL IN BED. ASSITED PT WITH CHANGING HIS SHORTS AND PULL SHEET. EUCERIN LOTION APPLIED TO DARK SCALEY SKIN TO RLE. ELEVATED STUMP AND RT LEG ON PILLOW. PT DECLINES NORCO AT THIS TIME.
--- NOTE | 2019-12-23 04:37 | NUR ---
PT HAS SLEPT WELL THIS NIGHT. UNEVENTFUL.
--- NOTE | 2019-12-23 05:20 | NUR ---
PT AWAKE. WATCHING TV. PAIN LEVEL 2-3/10. DENIES NEEDS.
[2019-12-23 06:38] VITALS: BP 143/62; PULSE 82; TEMP 97.9
--- NOTE | 2019-12-23 09:10 | NUR ---
Bedside report from CASSIA Doan. Pt in bed with immobilizer in place to LLE, yellow gripper sock and SCD to RLE. SSI given with breakfast. Pt took norco prior to attending PT. Pain in haresh shoulders and phantom limb pain. Pt requests something to help him sleep, states he had night sweats last night. A&O, pleasantly cooperative, declined any needs.
--- NOTE | 2019-12-23 09:21 | NUR ---
Pt states IF the team recommends OP PT, he would prefer to go to [facility] in [place].
[2019-12-23 16:23] VITALS: BP 127/61; PULSE 87; TEMP 98.5
--- NOTE | 2019-12-23 16:53 | NUR ---
Tricot Knitting Machine Operator followed up with patient before the weekend. Patient states he is feeling tired after today's therapy. SW reminded patient that SW faxed referral to [facility] and Sravani from [facility] may come visit with him next week. Patient denies any questions or concerns at this time.
--- NOTE | 2019-12-23 16:55 | NUR ---
Pt bedresting, watching TV, turned bed alarm on, immobilizer in place.
--- NOTE | 2019-12-23 19:30 | NUR ---
PATIENT RESTING IN BE DURING DURING CHANGE OF SHIFT REPORT FROM DAY SHIFT NURSE. BED ALARM ON.
--- NOTE | 2019-12-23 20:13 | NUR ---
Bedside report to CASSIA Huitron. Silvia visiting, Pt has CIARA and yellow gripper sock to RLE, turned bed alarm on, call lt and urinal in reach.
--- NOTE | 2019-12-24 02:46 | NUR ---
AWAKE FOR VOIDING, DENIES ANY NEEDS AT THIS TIME, THINKS AMBIEN HAS HELPED SOME, THINKS HE MIGHT BE ABLE TO GO BACK TO SLEEP. BED ALARM ON.
[2019-12-24 05:44] VITALS: BP 134/64; PULSE 81; TEMP 98.3
--- NOTE | 2019-12-24 11:25 | NUR ---
Patient resting in bed call light in reach, bed alarm set. He chose not to go to Group Therapy this morning since he had some phone calls to make. Patient has hyperkeratosis to his RLE and lotion was applied to that area this morning. Patient had a large BM this morning per patient, as patient flushed stool before this nurse was able to observe it. Patient was educated on the need to leave stool so staff would be able to chart effectivly. He voiced understanding. Patient has a scrap on the top of his right foot that has a mepilex in place at this time. There is also a scrap to his left knee that a mepilex was applied too yesterday. It is currently CDI. Will continue to monitor.
--- NOTE | 2019-12-24 15:33 | NUR ---
Patient resting in bed with call light in reach, bed alarm on with family by his side. Patient is independent with eating and grooming today. He is a CGA with ambulation this afternoon to the bathroom.
[2019-12-24 16:24] VITALS: BP 135/82; PULSE 87; TEMP 98.1
--- NOTE | 2019-12-24 19:08 | NUR ---
PATIENT RESTING IN BED DURING CHANGE OF SHIFT REPORT FROM DAY SHIFT NURSE. BED ALARM ON, HAS NO NEEDS REPORTED. WANTING TO TAKE SLEEPING PILL WITH TYLENOL AFTER 2129 TONIGHT FOR SLEEP.
--- NOTE | 2019-12-24 23:10 | NUR ---
PATIENT SLEEPING, DOES NOT AWAKEN WHEN DOOR TO ROOM OPENS, BREATHING NONLABORED AND EVEN, BED ALARM ON
--- NOTE | 2019-12-25 01:45 | NUR ---
SLEEPING WITH NO WAKING UP WHEN DOOR TO ROOM OPENS, BED ALARM ON. BREATHING NONLABORED AND EVEN.
[2019-12-25 03:54] VITALS: BP 122/71; PULSE 82; TEMP 97.6
--- NOTE | 2019-12-25 07:02 | NUR ---
PATIENT RESTING IN BED WITH BED ALARM ON, DURING CHANGE OF SHIFT REPORT GIVEN TO DAY SHIFT NURSE WITH NO OTHER NEEDS REPORTED.
--- NOTE | 2019-12-25 09:00 | NUR ---
Assessed patient and applied lotion to his right lower leg. Refused his sania hose this shift, but did wear his SCD's through out day when in bed. Secured Left BKA dressing with another layer of roger wrap and wrapped it up over the knee to provide protection against the velcro strap rubbing against it. Patient tolerated well. Patient denied any questions or concerns.
--- NOTE | 2019-12-25 13:42 | NUR ---
Patient has been watching videos on his computer this morning and afternoon. He was observation only with wheeling around the surgical, joint and IPR units. Patient independent on all his grooming cares and eating. Given prn [place] with morning meds due to increased right stump pain and was effective. Will continue to monitor.
[2019-12-25 16:18] VITALS: BP 95/52; PULSE 85; TEMP 97.9
--- NOTE | 2019-12-25 19:30 | NUR ---
PATIENT RESTING IN BED DURING CHANGE OF SHIFT REPORT FROM DAY SHIFT NURSE. BED ALARM ON.
[2019-12-26 02:54] VITALS: BP 143/72; PULSE 76; TEMP 97.7
--- NOTE | 2019-12-26 04:05 | NUR ---
RESTING WITH EYES CLOSED, DOES NOT AWAKEN WHEN DOOR TO ROOM OPENS, BREATHING NONLABORED AND EVEN. BED ALARM ON
[2019-12-26 06:20] LABS: HEMATOCRIT 39.7 % (42.0-52.0); HEMOGLOBIN 12.9 g/dl (13.5-18.0); MEAN CELL VOLUME 95 fl (80.0-100.0); MEAN CORPUSCULAR HEMOGLOBIN 31 pg (27.0-31.0); MEAN CORPUSCULAR HGB CONC 33 g/dl (33.0-37.0); MEAN PLATELET VOLUME 8.7 fl (7.4-10.4); PLATELET COUNT 285 K/mm3 (130-400); RED BLOOD COUNT 4.19 M/mm3 (4.20-5.60); REDCELL DISTRIBUTION WIDTH-CV 12.4 % (11.5-14.5)
[2019-12-26 06:29] LABS: CALCIUM 9.5 mg/dL (8.4-10.2); CREATININE, serum 0.68 (0.66-1.25); MAGNESIUM 1.6 mg/dL (1.6-2.3); POTASSIUM 4.9 mmol/L (3.4-5.0)
[2019-12-26 07:05] LABS: BAND 2 % (0-10); EOSINOPHIL 1 % (0-4); LYMPHOCYTE 32 % (20.0-51.0); METAMYELOCYTE 5 % (0-0); NEUTROPHILS 56 % (42.0-75.2)
--- NOTE | 2019-12-26 07:52 | NUR ---
PATIENT RESTING IN BED DURING CHANGE OF SHIFT REPORT GIVEN TO DAY SHIFT NURSE. BED ALARM ON.
--- NOTE | 2019-12-26 16:16 | NUR ---
CONRAD met with the patient to follow up after the weekend. The patient states that he is doing well. He asked about getting a wheelchair. SW to assist the patient with ordering a wheelchair and will continue to follow.
[2019-12-26 16:28] VITALS: BP 109/49; PULSE 91; TEMP 97.8
--- NOTE | 2019-12-26 19:38 | NUR ---
Bedside report from CASSIA Huitron. No acute changes today. Pt's immobilizer and dressing to L BKA intact, amb with walker, A&O, norco for pain. Bedside report to CASSIA Keenan. Turned pt's bed alarm on, call lt in reach.
--- NOTE | 2019-12-26 20:30 | NUR ---
HS meds reviewed and given. Denies need for pain med at this time. States may take ambien later on but "don't wake me up for it". Snack of pudding given. Accu check 130. Up to the bathroom CGA with walker and rests back in bed. Seth karfte removed RLE and SCD applied.
--- NOTE | 2019-12-27 02:24 | NUR ---
Patient rests quietly in bed.
[2019-12-27 03:15] VITALS: BP 130/60; PULSE 80; TEMP 98.6
--- NOTE | 2019-12-27 03:18 | NUR ---
Patient called for extra blanket and warm blanket given. States he's been sleeping well and pain med helped earlier.
--- NOTE | 2019-12-27 05:42 | NUR ---
Patient rests quietly in bed.
--- NOTE | 2019-12-27 11:15 | NUR ---
Patient attending all therapies this morning. Patient chose to only take one Orange this morning instead of two and seems to be tolerating pain when working with therapy at this time. Will continue to monitor. Patient denied any questions.
--- NOTE | 2019-12-27 13:50 | NUR ---
CONRAD attended a family meeting with patient and his , Silvia. Also present was IPR Director, PT, and OT. IPR Director started by explaining the purpose of the meeting. PT/OT then discussed the patient's progress and their recommendations of grab bars, a shower seat or tub transfer bench, wheelchair and where to obtain them. IPR Director then discussed the team's plan for a discharge this Thursday, 12/26, with home health vs outpatient therapy. The patient and his were in agreeance to the plan. The patient states that he would prefer home health. The patient's reports that their contractor should be installing the wheelchair ramp on . The team answered all patient and 's questions. CONRAD then followed up with the patient and his and presented and explained the Patient Choice Form for DME. The patient and his chose [place] [facility]. Patient Choice Form signed by the patient's and she was provided a copy. Sravani, at [facility], then arrived at the hospital to visit the patient and his . CONRAD updated her on discharge date. Sravani reports that they are able to accept the patient back for services. CONRAD contacted and faxed the wheelchair order to Fanny at [facility]. SW awaiting approval and delivery of wheelchair.
--- NOTE | 2019-12-27 15:29 | NUR ---
Patient reports that his ears sound like he is in a well. This started yesterday. This nurse observed patient's ears and some wax was seen and very minimal pink area to left lower ear.
--- NOTE | 2019-12-27 15:57 | NUR ---
Call placed to Dr. Enamorado's nurse asking for patient when he would be allowed to take his immobilizer off.
--- NOTE | 2019-12-27 16:12 | NUR ---
Call placed to Dr. Dawson's nurse per patient request to find out when he would be allowed to remove his immobilizer. Nurse reported that Dr. Dawson is in surgery at this time and it may be tomorrow before this information could be communicated to Dr. Dawson, but they will get back to him. This was communicated to patient.
--- NOTE | 2019-12-27 16:30 | NUR ---
Received a call back from Dr. Patel nurse and she reported that Dr. Dawson said it was okay for patient to take immobilizer off when out of bed now. Must leave on when in bed. Patient was updated on this.
[2019-12-27 19:14] VITALS: BP 115/57; PULSE 96; TEMP 98.7
--- NOTE | 2019-12-27 21:00 | NUR ---
HS med along with norco for LBKa pain reviewed and given. Accu check 91 and snack of pudding given. Patient up CGA with walker to the bathroom/hops RLE. Manages all toileting tasks and rests back in bed. Seth hose off RLE and SCD applied. Immobilizer CDI LLE and elevated on pillow.
--- NOTE | 2019-12-28 02:30 | NUR ---
Patient has been resting with eyes closed. Respirations with ease.
[2019-12-28 05:44] VITALS: BP 123/53; PULSE 85; TEMP 98.4
--- NOTE | 2019-12-28 05:45 | NUR ---
Patient has been resting until now. Reports he slept well. Urinal emptied twice by nurse. VSS. Denies needs.
[2019-12-28 16:40] VITALS: BP 105/64; PULSE 85; TEMP 97.5
--- NOTE | 2019-12-28 16:48 | NUR ---
Fanny, at [facility], reports that they do not any 20 inch wheelchairs in stock for the patient, but do have 16 inch and 24 inch wheelchairs. She states that they can provide the patient with one of those wheelchairs, until they receive the 20 inch wheelchair. CONRAD met with the patient to inform and to present and explain the IPR Team Conference Note. The patient chose to pursue with getting the 24 inch wheelchair through them, until they receive the 20 inch wheelchair. CONRAD contacted and informed Fanny at [facility]. CONRAD reviewed the note and the teams recommendation of a discharge for Thursday, 12/29. The patient was in agreeance to the plan. SW to continue to follow.
--- NOTE | 2019-12-28 19:30 | NUR ---
PATIENT RESTING IN BED DURING SHIFT CHANGE REPORT FROM DAY SHIFT NURSE, UP INDEPENDENTLY IN ROOM WITH WALKER OR W/C AND INDEPENDENTLY IN W/C IN PAGAN ON REHAB UNIT. DENIES ANY NEEDS DURING REPORT.
--- NOTE | 2019-12-28 19:42 | NUR ---
Bedside report from CASSIA Keenan. Pt had increased bilateral shoulder pain, resistant to take norco, see new orders for lidocaine patches, from 10/10 pain to 2/10 in shoulders. Phantom pain cont but >3/10. Immobilizer in place. Pt adv to mod I in and r[place]oul. BGs good. Bedside report to CASSIA Huitron.
--- NOTE | 2019-12-28 20:50 | NUR ---
PATIENT GIVEN [place]ANILLA PUDDING FOR SNACK. NO OTHER NEEDS REPORTED.
--- NOTE | 2019-12-29 02:14 | NUR ---
PATIENT RESTING WITH EYES CLOSED, DOES NOT AWAKEN WHEN DOOR TO ROOM OPENS, BREATHING NONLABORED AND EVEN. UP INDEPENDENTLY IN ROOM WHEN AWAKE SAFELY AND WITHOUT REPORTED PROBLEMS OR CONCERNS.
--- NOTE | 2019-12-29 03:44 | NUR ---
PATIENT SLEEPING, DOES NOT AWAKEN WHEN DOOR TO ROOM OPENS, BREATHING NONLABORED/EVEN. WHEN AWAKE, PATIENT UP INDEPENDENTLY IN ROOM WITHOUT PROBLEMS.
[2019-12-29 05:38] VITALS: BP 128/65; PULSE 81; TEMP 97.4
--- NOTE | 2019-12-29 07:00 | NUR ---
PATIENT IN BED RESTING DURING CHANGE OF SHIFT REPORT GIVEN TO DAY SHIFT NURSE. UP INDEPENDENTLY IN ROOM WITH NO SAFETY CONCERNS REPORTED.
--- NOTE | 2019-12-29 10:30 | NUR ---
Fanny, at [place] [facility], reports that they got a 20 inch wheelchair in stock now and that they will deliver the 20 inch wheelchair to the patient's room tomorrow. CONRAD notified the patient's RN and updated the patient. CONRAD also presented and explained the IM form to the patient. The patient verbalized understanding, signed, and he was provided a copy. The patient had no other questions or concerns for discharge tomorrow. CONRAD to continue to follow.
--- NOTE | 2019-12-29 10:54 | NUR ---
Bedside report from CASSIA Huitron. Pt jania mod I in rm w/ walker/wheelchair. Did not wear SCD to RLE last night, did leave CIARA hose on, edu to remove at [facility]. [place] for pain prior to therapy, shoulders 3/10, stump/phantom pain 2/10 in bed, immobilizer in place, dressing intact. Miralax in applejuice as pt has not had a BM in since 12/25. Pt states plans to pick him up tomorrow after 1630.
[2019-12-29 16:48] VITALS: BP 126/61; PULSE 90; TEMP 98.5
--- NOTE | 2019-12-29 19:39 | NUR ---
Bedside report to CASSIA Doan. Pt jania mod I in /[place].
--- NOTE | 2019-12-29 20:00 | NUR ---
BEDSIDE REPORT REC'D FROM VAL Sarmiento RN. PT RESTING IN BED.; NO NEEDS T THIS TIME. MOD I IN ROOM/PAGAN WALKER VS WC.
--- NOTE | 2019-12-30 04:00 | NUR ---
PT UP ABOUT ROOM AND PAGAN. DENIES PAIN AT THIS TIME. USING GOOD SAFETY JUDGMENT. DENIES NEED FOR PAIN MEDICATION.
[2019-12-30 05:32] VITALS: BP 131/55; PULSE 87; TEMP 98.6
[2019-12-30] MEDS ORDERED: AMOXICILLIN 8751 TAB PO (10:54)
[2019-12-30] MEDS ORDERED: CLARITIN 1010 MG/TAB PO (10:54)
[2019-12-30] MEDS ORDERED: ASPERCREME1 EACH TP (10:56)
[2019-12-30] MEDS ORDERED: FLONASE NASAL S16 GM NS (10:56)
[2019-12-30] MEDS ORDERED: NORCO 325 MG-51 TAB PO (10:58)
--- NOTE | 2019-12-30 11:29 | NUR ---
Bedside report from CASSIA Doan. Pt jania mod I in rm and wheels about in [place] in wheelchair. [place], A&O, cooperative. Provided lidocaine patches for shoulders. Plans to discharge home today when gets off work this afternoon. Denies questions.
--- NOTE | 2019-12-30 12:02 | NUR ---
[place] [facility] delivered the patient's wheelchair to his room. The patient is to discharge back home with his today, 12/29, with home health services for PT/OT/intermediate through [facility]. CONRAD contacted and faxed the patient's discharge orders to Sravani at [facility]. No additional needs at this time.
--- NOTE | 2019-12-30 19:06 | NUR ---
Printed pt health summary, discharge summary, and home med list and reviewed with pt and , Silvia. Stressed importance of follow up appts. Reviewed meds and gave printed prescription for norco. Stressed Tylenol NTE 4,000 mg in 24 hrs. Belongings gathered by pt, , and nurse including hip kit, glasses, immobilizer in place, new wheelchair, phone, clothes, coat and flonase. Pill sorter went home previously. Pt states his walker is at home. Pt escourted via wheelchair by ASHLEY Acevedo to vehicle for ride home with . Pt and denied any questions.
== END 2019-12-30 17:10 | disposition home health service (06) | DRG 947 ==
PROVIDERS: ADMIT Internal Medicine
DX: R53.81 Other malaise (principal); A41.9 Sepsis, unspecified organism; E11.621 Type 2 diabetes mellitus with foot ulcer; E11.65 Type 2 diabetes mellitus with hyperglycemia; E11.42 Type 2 diabetes mellitus with diabetic polyneuropathy; I10 Essential (primary) hypertension; L97.529 Non-pressure chronic ulcer of other part of left foot with unspecified severity; Z79.82 Long term (current) use of aspirin; E78.5 Hyperlipidemia, unspecified; G47.00 Insomnia, unspecified; Z79.891 Long term (current) use of opiate analgesic; Z79.4 Long term (current) use of insulin; Z89.512 Acquired absence of left leg below knee; Z86.718 Personal history of other venous thrombosis and embolism; Z86.711 Personal history of pulmonary embolism
CPT/HCPCS: 99222-AI; 99232-AI; 99239; J1650; J1815

== ENCOUNTER 2022-01-20 14:39 | Emergency (ER) | payer BC ==
[~2022-01-20] VITALS: Ht 182.9 cm; Wt 127.7 kg
[~2022-01-20 14:39] MED LIST changes: +ASPERCREME1 EACH TP; +CLARITIN 1010 MG/TAB PO; +COZAAR 25MG25 MG/TAB PO; +FLONASE NASAL S16 GM NS; +NORCO 325 MG-51 TAB PO
[2022-01-20 15:03] VITALS: TEMP 98.4
[2022-01-20 16:00] LABS: BASO % 0.6 % (0.0-2.0); EOS # 0.1 K/mm3 (0.0-0.7); GRAN # 3.7 K/mm3 (1.4-6.5); HEMATOCRIT 38.8 % (42.0-52.0); HEMOGLOBIN 13.8 g/dl (13.5-18.0); LYMPH # 2.4 K/mm3 (1.2-3.4); LYMPH % 35.1 % (20.0-51.0); MEAN CELL VOLUME 89 fl (80.0-100.0); MEAN CORPUSCULAR HEMOGLOBIN 32 pg (27-31); MEAN CORPUSCULAR HGB CONC 36 g/dl (33.0-37.0); MEAN PLATELET VOLUME 8.9 fl (7.4-10.4); MONO # 0.7 K/mm3 (0.1-0.6); PLATELET COUNT 183 K/mm3 (130-400); RED BLOOD COUNT 4.35 M/mm3 (4.20-5.60); REDCELL DISTRIBUTION WIDTH-CV 12.1 % (11.5-14.5)
[2022-01-20 16:24] LABS: ALANINE AMINOTRANSFERASE 45 U/L (0-55); ALBUMIN 3.6 gm/dL (3.4-4.8); ALKALINE PHOSPHATASE 66 U/L (40-150); ANION GAP 13 mmol/L (7-16); AST,SGOT 67 U/L (5-34); BILIRUBIN,TOTAL 0.5 mg/dL (0.2-1.2); BLOOD UREA NITROGEN 15 mg/dL (8-26); CALCIUM 9.6 mg/dL (8.4-10.2); CARBON DIOXIDE 25 mmol/L (23-31); CHLORIDE 97 mmol/L (98-107); CREATININE, serum 0.87 mg/dL (0.72-1.25); GLUCOSE 172 mg/dL (70-99); POTASSIUM 4.8 mmol/L (3.5-4.5); SODIUM 135 mmol/L (136-145); TOTAL PROTEIN 7.5 gm/dL (6.2-8.1)
[2022-01-20 16:35] LABS: TROPONIN-I < 0.010 ng/mL (0.00-0.033)
[2022-01-20] MEDS ORDERED: VIRTUSSIN AC 1118 ML PO (17:55)
[2022-01-20 18:04] VITALS: BP 173/81; PULSE 82
== END 2022-01-20 18:16 | disposition home or self-care (01) ==
LOC: COL.ER 14:39
PROVIDERS: Emergency Medicine
DX: R05.1 Acute cough (principal); R09.81 Nasal congestion; Z86.16 Personal history of COVID-19
CPT/HCPCS: Q9967

== ENCOUNTER 2022-05-05 10:04 | Emergency (ER) | payer BC ==
[~2022-05-05] VITALS: Ht 182.9 cm; Wt 125.0 kg
[~2022-05-05 10:04] MED LIST changes: +VIRTUSSIN AC 1118 ML PO
[2022-05-05 10:53] VITALS: TEMP 97.5
[2022-05-05] MEDS ORDERED: CLEOCIN HCL300 MG PO (11:35)
[2022-05-05 12:00] VITALS: BP 146/76; PULSE 76
== END 2022-05-05 12:36 | disposition home or self-care (01) ==
LOC: COL.ER 10:04
DX: S91.211A Laceration without foreign body of right great toe with damage to nail, initial encounter (principal); E11.42 Type 2 diabetes mellitus with diabetic polyneuropathy; W20.8XXA Other cause of strike by thrown, projected or falling object, initial encounter